=== PATIENT | female | born 1975 | race Two or more races ===

== ENCOUNTER → 2020-03-15 | Day surgery (SDC) | payer BC, OTHER ==
[2020-03-13 12:14] VITALS: BMI 25.0
[~2020-03-15] MED LIST: LACTATED RINGERS 1,000 ML IV SCH; LIDOCAINE 1% (10MG/ML) FOR IV START INTRADERMA ONE; LIDOCAINE 1% (10MG/ML) FOR IV START INTRADERMA PRN; LIDOCAINE 1% INJ 10MG/ML (20 ML MDV) ONE; ONDANSETRON 4 MG/2 ML VIAL IVP ONE; ONDANSETRON 4 MG/2 ML VIAL ONE; PROPOFOL 10 MG/ML 20 ML VIAL IV ONE
[2020-03-15 09:16] VITALS: TEMP 97.5
[2020-03-15 09:24] LABS: Glucose,Whole Blood 80 mg/dL (75-99)
--- NOTE | 2020-03-15 10:19 | P.PCN ---
Date of Procedure: 03/15/20 Procedure(s) Performed: BRIEF HISTORY: Patient is a 44-year-old, pleasant female scheduled for an upper endoscopy as a part of evaluation of epigastric pain with intermittent nausea vomiting and dysphagia. Has history of gastric surgery 4 years ago.. PROCEDURE PERFORMED: Esophagogastroduodenoscop with the biopsy . PREOPERATIVE DIAGNOSIS: Intermittent dysphagia to solids last nausea and vomiting.. IV sedation per anesthesia. PROCEDURE: After informed consent was obtained, the patient was brought into the endoscopy unit. IV sedation was administered by Anesthesia under continuous monitoring. Initially the Olympus GIF-140 video endoscope was inserted into the mouth. Esophagus intubated without any difficulty. It was gradually advanced into the stomach and duodenum and carefully examined. The bulb and the second part of the duodenum appeared normal. The scope at this time was withdrawn to t he stomach, adequately insufflated with air, and upon careful examination, mucosa of the antrum had mild gastritis and biopsies were done from this area. There was evidence of gastric sleeve surgery and the visualized portions of the gastric mucosa and the gastric sleeve appeared entirely normal. The scope was then withdrawn into the esophagus. The GE junction was located at 39 cm from the incisors. there were 2 superficial erosions at the GE junction consistent with LA grade B reflux esophagitis. Rest of the esophagus appeared normal and the patient tolerated the procedure IMPRESSION: 1. Evidence of gastric sleeve surgery. 2. Mild antral gastritis. 3. LA grade a reflux esophagitis RECOMMENDATIONS: The findings of this examination were discussed with the patient as well as her family. She was advised to follow with the biopsy results. In the meantime she will start on Prilosec 20 mg daily and follow antireflux measures. If she still has the symptoms she was advised to follow up in office in 3-4 weeks.
[2020-03-15 10:25] VITALS: RESP 16
[2020-03-15 10:55] VITALS: BP 117/80; PULSE 51
== END ==
LOC: ORWHC2ENDO 08:34 → MERGE 10:00
PROVIDERS: ATTEND Internal Medicine Gastroenterology
DX: K29.50 Unspecified chronic gastritis without bleeding (principal); K21.0 Gastro-esophageal reflux disease with esophagitis; K22.10 Ulcer of esophagus without bleeding; E11.9 Type 2 diabetes mellitus without complications; Z90.710 Acquired absence of both cervix and uterus; Z98.84 Bariatric surgery status
CPT/HCPCS: 88305; 43239; J2405; J2001; J2704

== ENCOUNTER 2023-08-03 11:19 | Inpatient (IN) | payer OTHER ==
--- NOTE | 2023-08-03 11:53 | ED ---
General Adult HPI - General Chief complaint: Abdominal Pain Stated complaint: Bowel Obstruction Time Seen by Provider: 08/03/23 11:20 Source: patient, EMS, RN notes reviewed, old records reviewed Mode of arrival: EMS Limitations: no limitations - History of Present Illness Initial comments: This a 48-year-old female who was seen at [facility] earlier today for abdominal pain. They diagnosed the patient with small bowel obstruction and she did have some vomiting but she no longer feels nauseated. They did not put an NG tube because in the past she's had a gastric sleeve. Patient denies any fever chills. Patient denies history of similar. Patient states she's had a hysterectomy her appendix out as well as a gastric sleeve. Patient denies any chest pain difficult breathing shortest of breath. Patient currently states she is not having any abdominal pain it comes and goes. And she denies any nausea currently. - Related Data Home Medications Medication Instructions Recorded Confirmed Calcium(Dose Unknown) 1 tab PO DAILY 03/13/20 03/15/20 Iron(Dose Unknown) 1 tab PO DAILY 03/13/20 03/15/20 Vitamin B 12(Dose Unknown) 1 tab PO DAILY 03/13/20 03/15/20 Vitamin D3(Dose Unknown) 1 tab PO DAILY 03/13/20 03/15/20 Allergies Allergy/AdvReac Type Severity Reaction Status Date / Time No Known Allergies Allergy Verified 03/15/20 09:16 Review of Systems ROS Statement: Those systems with pertinent positive or pertinent negative responses have been documented in the HPI. ROS Other: All systems not noted in ROS Statement are negative. Past Medical History Past Medical History: GERD/Reflux Additional Past Medical History / Comment(s): having abdominal pain, not able to eat much-"when I eat it comes back up", was diabetic(was on metformin) prior to wt loss, now states "non diabetic"- History of Any Multi-Drug Resistant Organisms: None Reported Past Surgical History: Appendectomy, Bariatric Surgery, Hysterectomy, Tubal Ligation Additional Past Surgical History / Comment(s): gastric sleeve 2014, tubal reversal, surgery for tubal , cyst removed from ovaries, Past Anesthesia/Blood Transfusion Reactions: Family History of Problems w/ Anesthesia Additional Past Anesthesia/Blood Transfusion Reaction / Comment(s): mom has a hard time waking up Past Psychological History: No Psychological Hx Reported Smoking Status: Former smoker Past Alcohol Use History: None Reported Past Drug Use History: None Reported - Past Family History Mother Family Medical History: Cancer General Exam - General Exam Comments Initial Comments: GENERAL: Patient is well-developed and well-nourished. Patient is nontoxic and well- hydrated and is in mild distress. ENT: Neck is soft and supple. No significant lymphadenopathy is noted. Oropharynx is clear. Moist mucous membranes. Neck has full range of motion without eliciting any pain. EYES: The sclera were anicteric and conjunctiva were pink and moist. Extraocular movements were intact and pupils were equal round and reactive to light. Eyelids were unremarkable. PULMONARY: Unlabored respirations. Good breath sounds bilaterally. No audible rales rhonchi or wheezing was noted. CARDIOVASCULAR: There is a regular rate and rhythm without any murmurs gallops or rubs. ABDOMEN: Patient's abdomen is nontender SKIN: Skin is clear with no lesions or rashes and otherwise unremarkable. NEUROLOGIC: Patient is alert and oriented x3. Cranial nerves II through XII are grossly intact. Motor and sensory are also intact. Normal speech, volume and content. Symmetrical smile. MUSCULOSKELETAL: Normal extremities with adequate strength and full range of motion. LYMPHATICS: No significant lymphadenopathy is noted PSYCHIATRIC: Normal psychiatric evaluation. Limitations: no limitations Course Vital Signs 08/03/23 11:22 Temperature 99.2 F Pulse Rate 75 Respiratory 18 Rate Blood Pressure 118/87 O2 Sat by Pulse 96 Oximetry Medical Decision Making - Medical Decision Making Was pt. sent in by a medical professional or institution (, ALEXSANDER, CHART CALCULATOR, urgent care, hospital, or residential...) When possible be specific @ -Patient was sent to us by [facility]. Did you speak to anyone other than the patient for history (EMS, parent, family, police, friend...)? What history was obtained from this source @ -Spoke with the physician at [facility] when they transferred the patient Did you review nursing and triage notes (agree or disagree)? Why? @ -I reviewed and agree with nursing and triage notes Were old charts reviewed (outside hosp., previous admission, EMS record, old EKG, old radiological studies, urgent care reports/EKG's, residential records)? Report findings @ -I reviewed prior lab work and radiological studies from [facility] Differential Diagnosis (chest pain, altered mental status, abdominal pain women, abdominal pain men, vaginal bleeding, weakness, fever, dyspnea, syncope, headache, dizziness, GI bleed, back pain, seizure, CVA, palpatations, mental health, musculoskeletal)? @ -Differential Abdominal Pain Women: Appendicitis, Cholecystitis, diverticulosis, ischemic bowel, pancreatitis, hepatitis, UTI, gastroenteritis, AAA, incarcerated hernia, bowel obstruction, constipation, inflammatory bowel, hepatitis, peptic ulcer disease, splenic infarction, perforated viscus, vulvitis, ovarian torsion, PID, kidney stone, placenta abruption, this is not meant to be an all-inclusive list EKG interpreted by me (3pts min.). @ -As above X-rays interpreted by me (1pt min.). @ -None done CT interpreted by me (1pt min.). @ -None done U/S interpreted by me (1pt. min.). @ -None done What testing was considered but not performed or refused? (CT, X-rays, U/S, labs)? Why? @ -None What meds were considered but not given or refused? Why? @ -None Did you discuss the management of the patient with other professionals (professionals i.e. , PA, CHART CALCULATOR, lab, RT, psych nurse, social media executive, teenage babysitter, teacher, global chief creative officer, case checker)? Give summary @ -I spoke with the [facility] hospitalist and they agreed to admit the patient Was smoking cessation discussed for >3mins.? @ -No Was critical care preformed (if so, how long)? @ -No Were there social determinants of health that impacted care today? How? (Homelessness, low income, unemployed, alcoholism, drug addiction, transportation, low edu. Level, literacy, decrease access to med. care, penitentiary, rehab)? @ -No Was there de-escalation of care discussed even if they declined (Discuss DNR or withdrawal of care, Hospice)? DNR status @ -No What co-morbidities impacted this encounter? (DM, HTN, Smoking, COPD, CAD, Cance r, CVA, ARF, Chemo, Hep., AIDS, mental health diagnosis, sleep apnea, morbid obesity)? @ -None Was patient admitted / discharged? Hospital course, mention meds given and route, prescriptions, significant lab abnormalities, going to OR and other pertinent info. @ -Patient is asymptomatic at this time. Patient's abdomen is nontender. Patient is not nauseated and is not vomiting. I spoke with [facility] I admitted the patient I consult to Dr. Harris Undiagnosed new problem with uncertain prognosis? @ -No Drug Therapy requiring intensive monitoring for toxicity (Heparin, Nitro, Insulin, Cardizem)? @ -No Were any procedures done? @ -No Diagnosis/symptom? @ -Small bowel obstruction Acute, or Chronic, or Acute on Chronic? @ -Acute Uncomplicated (without systemic symptoms) or Complicated (systemic symptoms)? @ -Complicated Side effects of treatment? @ -No Exacerbation, Progression, or Severe Exacerbation? @ -No Poses a threat to life or bodily function? How? (Chest pain, USA, OR, pneumonia, PE, COPD, DKA, ARF, appy, cholecystitis, CVA, Diverticulitis, Homicidal, Suicidal, threat to staff... and all critical care pts) @ -No Disposition Clinical Impression: Small bowel obstruction Disposition: ADMITTED IP TO THIS HOSP Referrals: George Peoples MD [Primary Care Provider] - 1-2 days Time of Disposition: 11:53
[2023-08-03] MEDS ORDERED: SODIUM CHLORIDE 0.9% 1,000 ML IV ONE (12:03)
[2023-08-03 14:59] LABS: ALT 23 U/L (4-34); AST 29 U/L (14-36); African American GFR (CKD) >90 (>60 ml/min/1.73 sqM); Albumin 3.7 g/dL (3.5-5.0); Albumin/Globulin Ratio 1.6; Alkaline Phosphatase 67 U/L (38-126); Anion Gap 7 mmol/L; Blood Urea Nitrogen 10 mg/dL (7-17); Calcium 8.8 mg/dL (8.4-10.2); Carbon Dioxide 27 mmol/L (22-30); Chloride 106 mmol/L (98-107); Globulin 2.3 g/dL; Glucose 94 mg/dL (74-99); Non-African American GFR(CKD) >90 (>60 ml/min/1.73 sqM); Potassium 4.8 mmol/L (3.5-5.1); Sodium 140 mmol/L (137-145); Total Bilirubin 0.5 mg/dL (0.2-1.3)
--- NOTE | 2023-08-03 16:23 | P.HPIM ---
History of Present Illness H&P Date: 08/03/23 Chief Complaint: Abdominal pain 48-year-old female, history of GERD, appendectomy, bariatric surgery, hysterectomy and tubal ligation who was seen at [facility] earlier today for abdominal pain. They diagnosed the patient with small bowel obstruction and she did have some vomiting but she no longer feels nauseated. They did not put an NG tube because in the past she's had a gastric sleeve. -- Patient denies any fever chills. Patient denies history of similar. Patient states she's had a hysterectomy her appendix out as well as a gastric sleeve. Patient denies any chest pain difficult breathing shortest of breath. Patient currently states she is not having any abdominal pain it comes and goes. And she denies any nausea currently. Patient is transferred to our facility for general surgery evaluation Review of Systems REVIEW OF SYSTEMS: CONSTITUTIONAL: No fever, no malaise, no fatigue. HEENT: No recent visual problems or hearing problems. Denied any sore throat. CARDIOVASCULAR: No chest pain, orthopnea, PND, no palpitations, no syncope. PULMONARY: No shortness of breath, no cough, no hemoptysis. GASTROINTESTINAL: No diarrhea, no nausea, no vomiting, no abdominal pain. NEUROLOGICAL: No headaches, no weakness, no numbness. HEMATOLOGICAL: Denies any bleeding or petechiae. GENITOURINARY: Denies any burning micturition, frequency, or urgency. MUSCULOSKELETAL/RHEUMATOLOGICAL: Denies any joint pain, swelling, or any muscle pain. ENDOCRINE: Denies any polyuria or polydipsia. The rest of the 14-point review of systems is negative. Past Medical History Past Medical History: GERD/Reflux Additional Past Medical History / Comment(s): having abdominal pain, not able to eat much-"when I eat it comes back up", was diabetic(was on metformin) prior to wt loss, now states "non diabetic"- History of Any Multi-Drug Resistant Organisms: None Reported Past Surgical History: Appendectomy, Bariatric Surgery, Hysterectomy, Tubal Ligation Additional Past Surgical History / Comment(s): gastric sleeve 2015, tubal reversal, surgery for tubal , cyst removed from ovaries, Past Anesthesia/Blood Transfusion Reactions: Family History of Problems w/ Anesthesia Additional Past Anesthesia/Blood Transfusion Reaction / Comment(s): mom has a hard time waking up Past Psychological History: No Psychological Hx Reported Smoking Status: Former smoker Past Alcohol Use History: None Reported Past Drug Use History: None Reported - Past Family History Mother Family Medical History: Cancer Medications and Allergies Home Medications Medication Instructions Recorded Confirmed Type Atorvastatin [Lipitor] 10 mg PO HS 08/03/23 08/03/23 History Cholecalciferol [Vitamin D3 (25 50 mcg PO DAILY 08/03/23 08/03/23 History Mcg = 1000 Iu)] Ergocalciferol (Vitamin D2) 1,250 mcg PO WE 08/03/23 08/03/23 History [Drisdol (50,000 Iu)] Loratadine [Claritin] 10 mg PO DAILY 08/03/23 08/03/23 History Multivitamins, Thera [Multivitamin 1 tab PO DAILY 08/03/23 08/03/23 History (formulary)] Omeprazole [PriLOSEC] 20 mg PO DAILY 08/03/23 08/03/23 History Psyllium Husk [Fiber Capsule] 0.4 gm PO DAILY 08/03/23 08/03/23 History Venlafaxine HCl [Effexor XR] 75 mg PO DAILY 08/03/23 08/03/23 History Vitamin C/Biotin [Hair, Skin and 1 tab PO DAILY 08/03/23 08/03/23 History Nails Chew] Allergies Allergy/AdvReac Type Severity Reaction Status Date / Time No Known Allergies Allergy Verified 08/03/23 13:30 Physical Exam Vitals: Vital Signs Temp Pulse Resp BP Pulse Ox 08/03/23 11:22 99.2 F 75 18 118/87 96 Intake and Output 08/02/23 08/03/23 08/03/23 22:59 06:59 14:59 Other: Weight 81.647 kg GENERAL: Patient is well-developed and well-nourished. Patient is nontoxic and well- hydrated and is in mild distress. ENT: Neck is soft and supple. No significant lymphadenopathy is noted. Oropharynx is clear. Moist mucous membranes. Neck has full range of motion without eliciting any pain. EYES: The sclera were anicteric and conjunctiva were pink and moist. Extraocular movements were intact and pupils were equal round and reactive to light. Eyelids were unremarkable. PULMONARY: Unlabored respirations. Good breath sounds bilaterally. No audible rales rhonchi or wheezing was noted. CARDIOVASCULAR: There is a regular rate and rhythm without any murmurs gallops or rubs. ABDOMEN: Patient's abdomen is nontender SKIN: Skin is clear with no lesions or rashes and otherwise unremarkable. NEUROLOGIC: Patient is alert and oriented x3. Cranial nerves II through XII are grossly intact. Motor and sensory are also intact. Normal speech, volume and content. Symmetrical smile. MUSCULOSKELETAL: Normal extremities with adequate strength and full range of motion. LYMPHATICS: No significant lymphadenopathy is noted Results CBC & Chem 7: 08/03/23 14:06 Assessment and Plan Assessment: 1. Small bowel obstruction - Patient reports passing flatus and small liquidy bowel movement -- Has been kept nothing by mouth; NG tube is not placed -- IV fluids in form of normal saline; we will monitor renal function likely lites closely -- General surgery consulted 2. Gastroesophageal reflux disease; we'll start Protonix 40 mg IV daily 3. Abdominal pain; resolved DVT prophylaxis; SCDs CODE STATUS ; full code
[2023-08-03] MEDS ORDERED: VENLAFAXINE HCL ER 75 MG CAP PO STA (17:26)
[2023-08-03] MEDS: PANTOPRAZOLE 40 MG/10 ML VIAL IVP SCH (17:31)
--- NOTE | 2023-08-03 19:01 | P.GSCN ---
History of Present Illness Consult date: 08/03/23 History of present illness: Transfer from [place], previous event over 10 years ago. She has history of scar tissue. Pain started 2 days ago involving the left lower quadrant. No blood in stools. She is passing flatus and having loose stools. Plan for UGI. CT from outside facility not available. May have ice chips at this time. Past Medical History Past Medical History: GERD/Reflux Additional Past Medical History / Comment(s): having abdominal pain, not able to eat much-"when I eat it comes back up", was diabetic(was on metformin) prior to wt loss, now states "non diabetic"- History of Any Multi-Drug Resistant Organisms: None Reported Past Surgical History: Appendectomy, Bariatric Surgery, Hysterectomy, Tubal Ligation Additional Past Surgical History / Comment(s): gastric sleeve 2014, tubal reversal, surgery for tubal , cyst removed from ovaries, Past Anesthesia/Blood Transfusion Reactions: Family History of Problems w/ Anesthesia Additional Past Anesthesia/Blood Transfusion Reaction / Comm: mom has a hard time waking up Past Psychological History: No Psychological Hx Reported Smoking Status: Former smoker Past Alcohol Use History: None Reported Past Drug Use History: None Reported - Past Family History Mother Family Medical History: Cancer Medications and Allergies Home Medications Medication Instructions Recorded Confirmed Type Atorvastatin [Lipitor] 10 mg PO HS 08/03/23 08/03/23 History Cholecalciferol [Vitamin D3 (25 50 mcg PO DAILY 08/03/23 08/03/23 History Mcg = 1000 Iu)] Ergocalciferol (Vitamin D2) 1,250 mcg PO WE 08/03/23 08/03/23 History [Drisdol (50,000 Iu)] Loratadine [Claritin] 10 mg PO DAILY 08/03/23 08/03/23 History Multivitamins, Thera [Multivitamin 1 tab PO DAILY 08/03/23 08/03/23 History (formulary)] Omeprazole [PriLOSEC] 20 mg PO DAILY 08/03/23 08/03/23 History Psyllium Husk [Fiber Capsule] 0.4 gm PO DAILY 08/03/23 08/03/23 History Venlafaxine HCl [Effexor XR] 75 mg PO DAILY 08/03/23 08/03/23 History Vitamin C/Biotin [Hair, Skin and 1 tab PO DAILY 08/03/23 08/03/23 History Nails Chew] Allergies Allergy/AdvReac Type Severity Reaction Status Date / Time No Known Allergies Allergy Verified 08/03/23 13:30 Surgical - Exam Vital Signs Temp Pulse Resp BP Pulse Ox 99.2 F 75 18 118/87 96 08/03/23 11:22 08/03/23 11:22 08/03/23 11:22 08/03/23 11:22 08/03/23 11:22 Results - Labs 08/03/23 14:06 Abnormal Lab Results - Last 24 Hours (Table) 08/03/23 Range/Units 14:06 Total Protein 6.0 L (6.3-8.2) g/dL Diabetes panel 08/03/23 Range/Units 14:06 Sodium 140 (137-145) mmol/L Potassium 4.8 (3.5-5.1) mmol/L Chloride 106 (98-107) mmol/L Carbon Dioxide 27 (22-30) mmol/L BUN 10 (7-17) mg/dL Creatinine 0.67 (0.52-1.04) mg/dL Glucose 94 (74-99) mg/dL Calcium 8.8 (8.4-10.2) mg/dL AST 29 (14-36) U/L ALT 23 (4-34) U/L Alkaline Phosphatase 67 (38-126) U/L Total Protein 6.0 L (6.3-8.2) g/dL Albumin 3.7 (3.5-5.0) g/dL Calcium panel 08/03/23 Range/Units 14:06 Calcium 8.8 (8.4-10.2) mg/dL Albumin 3.7 (3.5-5.0) g/dL Pituitary panel 08/03/23 Range/Units 14:06 Sodium 140 (137-145) mmol/L Potassium 4.8 (3.5-5.1) mmol/L Chloride 106 (98-107) mmol/L Carbon Dioxide 27 (22-30) mmol/L BUN 10 (7-17) mg/dL Creatinine 0.67 (0.52-1.04) mg/dL Glucose 94 (74-99) mg/dL Calcium 8.8 (8.4-10.2) mg/dL Adrenal panel 08/03/23 Range/Units 14:06 Sodium 140 (137-145) mmol/L Potassium 4.8 (3.5-5.1) mmol/L Chloride 106 (98-107) mmol/L Carbon Dioxide 27 (22-30) mmol/L BUN 10 (7-17) mg/dL Creatinine 0.67 (0.52-1.04) mg/dL Glucose 94 (74-99) mg/dL Calcium 8.8 (8.4-10.2) mg/dL Total Bilirubin 0.5 (0.2-1.3) mg/dL AST 29 (14-36) U/L ALT 23 (4-34) U/L Alkaline Phosphatase 67 (38-126) U/L Total Protein 6.0 L (6.3-8.2) g/dL Albumin 3.7 (3.5-5.0) g/dL
[2023-08-04] MEDS: PANTOPRAZOLE 40 MG/10 ML VIAL IVP SCH (07:50)
[2023-08-04] MEDS: VENLAFAXINE HCL ER 75 MG CAP PO SCH (07:51)
--- NOTE | 2023-08-04 08:45 | P.PN ---
Subjective Progress Note Date: 08/04/23 Still reports abdominal cramping. Recommend UGI for assessment of transition point of partial bowel obstruction. Objective - Vital Signs Vital signs: Vital Signs Temp 98.2 F 08/04/23 07:32 Pulse 79 08/04/23 07:32 Resp 16 08/04/23 07:32 BP 105/67 08/04/23 07:32 Pulse Ox 94 L 08/04/23 07:32 FiO2 Intake & Output 08/03/23 08/04/23 08/04/23 18:59 06:59 18:59 Weight 81.647 kg 81.647 kg Other: # Voids 2 # Bowel Movements 1 - Labs CBC & Chem 7: 08/03/23 14:06 Labs: Abnormal Lab Results - Last 24 Hours (Table) 08/03/23 Range/Units 14:06 Total Protein 6.0 L (6.3-8.2) g/dL
[2023-08-04 10:49] LABS: Basophils # (A) 0.01 X 10*3/uL (0.00-0.10); Basophils % (A) 0.2 %; Eosinophils # (A) 0.15 X 10*3/uL (0.04-0.35); Eosinophils % (A) 3.5 %; HCT 37.9 % (37.2-46.3); HGB 12.4 g/dL (12.0-15.0); Lymphocytes # (A) 1.24 X 10*3/uL (0.90-5.00); Lymphocytes % (A) 28.6 %; MCH 31.9 pg (27.0-32.0); MCHC 32.7 g/dL (32.0-37.0); MCV 97.4 FL (80.0-97.0); Mean Platelet Volume 9.6 FL (9.5-12.2); Monocytes # (A) 0.32 X 10*3/uL (0.20-1.00); Monocytes % (A) 7.4 %; NRBC Per 100 WBC 0 X 10*3/uL (0.00-0.01); Neutrophils % (A) 59.8 %; Platelet Count 240 X 10*3/uL (140-440); RBC 3.89 X 10*6/uL (4.10-5.20); RDW 13.1 % (11.5-14.5); WBC 4.34 X 10*3/uL (4.50-10.00)
[2023-08-04 10:51] LABS: BUN/Creat Ratio 14.14 Ratio (12.00-20.00); Blood Urea Nitrogen 9.9 mg/dL (9.0-27.0); Calcium 8.3 mg/dL (8.7-10.3); Carbon Dioxide 26.8 mmol/L (21.6-31.8); Chloride 108 mmol/L (96-109); Glucose 94 mg/dL (70-110); Potassium 3.8 mmol/L (3.5-5.5); Sodium 142 mmol/L (135-145)
--- NOTE | 2023-08-04 11:24 | FL ---
EXAMINATION TYPE: FL Gastrografin UGI w small bowel DATE OF EXAM: 08/04/2023 COMPARISON: Outside CT 08/03/2023 HISTORY: 48-year-old female small bowel obstruction. History of sleeve gastrectomy in 2015. TECHNIQUE: A single contrast UGI study is performed with small bowel follow through. A total of 1 m inute 35 seconds of fluoroscopic time was utilized during procedure and 41 images obtained. Total do se area product (DAP) in uGy*m?, mGy*cm? (or similar): 1636.62. A total of 5 ounces of Gastrografin was ingested by the patient. There is limitation in the volume th at the patient could ingest due to the sleeve gastrectomy. FINDINGS: Derrick Boat Runner image of the abdomen shows no gross abnormality. The esophagus shows normal motility and emptying into the stomach. No evidence of hiatal hernia or s tricture noted. There are postsurgical changes of sleeve gastrectomy. The stomach shows normal distensibility, perist alsis, and mucosal folds by single contrast technique. The duodenal bulb and sweep are unremarkable. The small bowel study shows normal transit to the colon at approximately 30 minutes. Overall normal mucosal fold pattern throughout the small bowel. After the proximal small bowel, there is dilutional change to the Gastrografin and residual borderline dilated small bowel loops in the ri ght side of the abdomen measuring up to 3.0 cm versus 3.2 cm on the outside CT However, no discrete transition point is seen and contrast problems he makes it to the right side of the colon at 30 minutes. IMPRESSION: 1. Status post sleeve gastrectomy. 2. Contrast promptly makes it to the colon at around 30 minutes. There is some dilution to the ingest ed Gastrografin in the mid to distal small bowel and some residual borderline distended ileal loops m easuring up to 3.0 cm (versus 3.[address]). No discrete transition point. Findings suggest improving/resolving small bowel obstruction.
--- NOTE | 2023-08-04 22:05 | P.PN ---
Subjective 48-year-old female, history of GERD, appendectomy, bariatric surgery, hysterectomy and tubal ligation who was seen at [facility] earlier today for abdominal pain. They diagnosed the patient with small bowel obstruction and she did have some vomiting but she no longer feels nauseated. They did not put an NG tube because in the past she's had a gastric sleeve. -- Patient denies any fever chills. Patient denies history of similar. Patient states she's had a hysterectomy her appendix out as well as a gastric sleeve. Patient denies any chest pain difficult breathing shortest of breath. Patient currently states she is not having any abdominal pain it comes and goes. And she denies any nausea currently. Patient is transferred to our facility for general surgery evaluation 08/04/2023 SENDY Gilman awake, looks relaxed in bed She still nothing by mouth, no nausea vomiting No abdominal pain today She still reports watery diarrhea about 3 times this morning Small bowel series showing status post sleeve gastrectomy and resolving SBO Remains on normal saline 75 mL per oral and Protonix Objective - Vital Signs Vital signs: Vital Signs Temp 98.7 F 08/04/23 20:00 Pulse 69 08/04/23 20:00 Resp 16 08/04/23 20:00 BP 98/66 08/04/23 20:00 Pulse Ox 95 08/04/23 20:00 FiO2 Intake & Output 08/04/23 08/04/23 08/05/23 06:59 18:59 06:59 Intake Total 600 Balance 600 Weight 81.647 kg Intake: Intake, IV Titration 600 Amount Sodium Chloride 0.9% 1, 600 000 ml @ 75 mls/hr IV . [id number] ONE Rx#:[id number] Other: # Voids 2 3 # Bowel Movements 1 - Exam GENERAL: The patient is alert and oriented x3, not in any acute distress. Well developed, well nourished. HEENT: Pupils are round and equally reacting to light. EOMI. No scleral icterus. No conjunctival pallor. Normocephalic, atraumatic. No pharyngeal erythema. No thyromegaly. CARDIOVASCULAR: S1 and S2 present. No murmurs, rubs, or gallops. PULMONARY: Chest is clear to auscultation, no wheezing , no crackles. ABDOMEN: Soft, nontender, nondistended, normoactive bowel sounds. No palpable organomegaly. MUSCULOSKELETAL: No joint swelling or deformity. EXTREMITIES: No cyanosis, clubbing, or pedal edema. NEUROLOGICAL: Gross neurological examination did not reveal any focal deficits. SKIN: No rashes. no petechiae. - Labs CBC & Chem 7: 08/04/23 06:30 08/04/23 06:30 Labs: Abnormal Lab Results - Last 24 Hours (Table) 08/04/23 08/04/23 Range/Units 06:30 06:30 WBC 4.34 L (4.50-10.00) X 10*3/uL RBC 3.89 L (4.10-5.20) X 10*6/uL MCV 97.4 H (80.0-97.0) FL Calcium 8.3 L (8.7-10.3) mg/dL Assessment and Plan Assessment: 1. Small bowel obstruction - Patient reports passing flatus and small liquidy bowel movement -- Has been kept nothing by mouth; NG tube is not placed -- IV fluids in form of normal saline; we will monitor renal function likely lites closely -- General surgery consulted 2. Gastroesophageal reflux disease; we'll start Protonix 40 mg IV daily 3. Abdominal pain; resolved DVT prophylaxis; SCDs CODE STATUS ; full code
[2023-08-05 08:34] LABS: HCT 38.6 % (37.2-46.3); HGB 12.9 g/dL (12.0-15.0); MCH 31.9 pg (27.0-32.0); MCHC 33.4 g/dL (32.0-37.0); MCV 95.5 FL (80.0-97.0); Mean Platelet Volume 9.5 FL (9.5-12.2); NRBC Per 100 WBC 0 X 10*3/uL (0.00-0.01); Platelet Count 242 X 10*3/uL (140-440); RBC 4.04 X 10*6/uL (4.10-5.20); RDW 12.7 % (11.5-14.5); WBC 3.56 X 10*3/uL (4.50-10.00)
[2023-08-05 08:35] LABS: Basophils # (A) 0.03 X 10*3/uL (0.00-0.10); Basophils % (A) 0.8 %; Eosinophils # (A) 0.14 X 10*3/uL (0.04-0.35); Eosinophils % (A) 3.9 %; Lymphocytes # (A) 1.15 X 10*3/uL (0.90-5.00); Lymphocytes % (A) 32.3 %; Monocytes # (A) 0.34 X 10*3/uL (0.20-1.00); Monocytes % (A) 9.6 %; Neutrophils # (A) 1.89 X 10*3/uL (1.80-7.70); Neutrophils % (A) 53.1 %
[2023-08-05] MEDS: PANTOPRAZOLE 40 MG/10 ML VIAL IVP SCH (08:46)
[2023-08-05] MEDS: VENLAFAXINE HCL ER 75 MG CAP PO SCH (08:46)
[2023-08-05] MEDS: HEPARIN SODIUM,PORCINE 5,000 UNIT/ML 1 ML VIAL SQ SCH ×2 (08:46→20:19)
--- NOTE | 2023-08-05 12:30 | P.PN ---
Subjective 48-year-old female, history of GERD, appendectomy, bariatric surgery, hysterectomy and tubal ligation who was seen at [facility] earlier today for abdominal pain. They diagnosed the patient with small bowel obstruction and she did have some vomiting but she no longer feels nauseated. They did not put an NG tube because in the past she's had a gastric sleeve. -- Patient denies any fever chills. Patient denies history of similar. Patient states she's had a hysterectomy her appendix out as well as a gastric sleeve. Patient denies any chest pain difficult breathing shortest of breath. Patient currently states she is not having any abdominal pain it comes and goes. And she denies any nausea currently. Patient is transferred to our facility for general surgery evaluation 08/04/2023 pt awake, looks relaxed in bed She still nothing by mouth, no nausea vomiting No abdominal pain today She still reports watery diarrhea about 3 times this morning Small bowel series showing status post sleeve gastrectomy and resolving SBO Remains on normal saline 75 mL per oral and Protonix 08/05/2023 Patient was seen in walking in her home. No vomiting. She remains nothing by mouth. No abdominal pain and very mild tenderness which is improving. Patient with no bowel movement since yesterday morning when she had 3 watery bowel movements yesterday. Currently she is passing gas but no bowel movement. Extremities normal saline 75 mL/h Advance diet for surgery team recommendations, discussed with staff Objective - Vital Signs Vital signs: Vital Signs Temp 98.4 F 08/05/23 07:50 Pulse 64 08/05/23 07:50 Resp 16 08/05/23 07:50 BP 96/60 08/05/23 07:50 Pulse Ox 93 L 08/05/23 07:50 FiO2 Intake & Output 08/04/23 08/05/23 08/05/23 18:59 06:59 18:59 Intake Total 600 Balance 600 Intake: Intake, IV Titration 600 Amount Sodium Chloride 0.9% 1, 600 000 ml @ 75 mls/hr IV . [id number] ONE Rx#:[id number] Other: # Voids 3 4 - Exam GENERAL: The patient is alert and oriented x3, not in any acute distress. Well developed, well nourished. HEENT: Pupils are round and equally reacting to light. EOMI. No scleral icterus. No conjunctival pallor. Normocephalic, atraumatic. No pharyngeal erythema. No thyromegaly. CARDIOVASCULAR: S1 and S2 present. No murmurs, rubs, or gallops. PULMONARY: Chest is clear to auscultation, no wheezing , no crackles. ABDOMEN: Soft, nontender, nondistended, normoactive bowel sounds. No palpable organomegaly. MUSCULOSKELETAL: No joint swelling or deformity. EXTREMITIES: No cyanosis, clubbing, or pedal edema. NEUROLOGICAL: Gross neurological examination did not reveal any focal deficits. SKIN: No rashes. no petechiae. - Labs CBC & Chem 7: 08/05/23 05:33 08/04/23 06:30 Labs: Abnormal Lab Results - Last 24 Hours (Table) 08/05/23 Range/Units 05:33 WBC 3.56 L (4.50-10.00) X 10*3/uL RBC 4.04 L (4.10-5.20) X 10*6/uL Assessment and Plan Assessment: 1. Small bowel obstruction - Patient reports passing flatus and small liquidy bowel movement -- Has been kept nothing by mouth; NG tube is not placed -- IV fluids in form of normal saline; we will monitor renal function likely lites closely -- General surgery consulted 2. Gastroesophageal reflux disease; we'll start Protonix 40 mg IV daily 3. Abdominal pain; resolved DVT prophylaxis; SCDs CODE STATUS ; full code
[2023-08-05] MEDS ORDERED: SODIUM CHLORIDE 0.9% 2,000 ML IV ONE (13:02)
--- NOTE | 2023-08-05 22:34 | P.PN ---
Subjective Progress Note Date: 08/05/23 Principal diagnosis: She tolerated cleas. UGI negative for bowel obstruction. Recommend advance to low fiber diet and discharge. Objective - Vital Signs Vital signs: Vital Signs Temp 98.5 F 08/05/23 20:00 Pulse 58 L 08/05/23 20:00 Resp 17 08/05/23 14:00 BP 120/86 08/05/23 20:00 Pulse Ox 97 08/05/23 20:00 FiO2 Intake & Output 08/05/23 08/05/23 08/06/23 06:59 18:59 06:59 Other: # Voids 4 2 - Labs CBC & Chem 7: 08/05/23 05:33 08/04/23 06:30 Labs: Abnormal Lab Results - Last 24 Hours (Table) 08/05/23 Range/Units 05:33 WBC 3.56 L (4.50-10.00) X 10*3/uL RBC 4.04 L (4.10-5.20) X 10*6/uL
[2023-08-06] MEDS: SODIUM CHLORIDE 0.9% 1,000 ML IV SCH ×2 (00:42→08:19)
[2023-08-06 01:03] VITALS: PULSE 68
[2023-08-06] MEDS: HEPARIN SODIUM,PORCINE 5,000 UNIT/ML 1 ML VIAL SQ SCH (08:19)
[2023-08-06] MEDS: PANTOPRAZOLE 40 MG/10 ML VIAL IVP SCH (08:19)
[2023-08-06] MEDS: VENLAFAXINE HCL ER 75 MG CAP PO SCH (08:19)
[2023-08-06 08:33] VITALS: BP 92/60; RESP 16; TEMP 98.4
--- NOTE | 2023-08-06 22:46 | P.DS ---
Providers Date of admission: 08/03/23 12:05 Attending physician: Gaudencio Suazo Consults: 08/03/23 12:03 Consult Physician Urgent Consulting Provider: Lacy Castellanos Consult Reason/Comments: Small bowel obstruction Do you want consulting provider notified?: Yes Primary care physician: George Peoples Hospital Course: Diagnoses: 1. Small bowel obstruction, resolved 2. Gastroesophageal reflux disease 3. Abdominal pain; resolved 4. Depression, stable upon discharge Hospital course: 48-year-old female, history of GERD, appendectomy, bariatric surgery, hysterectomy and tubal ligation who was seen at [facility] earlier today for abdominal pain. Patient is found to have small bowel obstruction and she was treated with IV fluids, pain medication and bowel rest. Patient is been followed closer by surgery team. Patient showed interval improvement in her abdominal pain resolved, she tolerates diet well and she is having regular bowel movement. Her new complaints and patient is eager to be discharged Patient was cleared for discharge by surgery team. Problems and management plan were discussed with the patient and he verbalized understanding and acceptance Patient was found stable and can be discharged home in guarded prognosis however he needs follow-up as an outpatient. Patient was instructed to follow up with PCP within one week and patient agrees Patient was instructed to follow up with surgeon Dr. Whaley in 2 weeks after discharge and she agrees to call and make her own appointment Physical exam Gen: patient is a AAOx3, no distress CVS: S1-S2, RRR, no murmur Lungs: B/L CTA, no wheezing Abdomen: soft, no distention, no tenderness, positive bowel sounds Extremity: no leg edema or induration Time spent more than 35 minutes Plan - Discharge Summary Discharge Rx Participant: Yes New Discharge Prescriptions: Continue Omeprazole [PriLOSEC] 20 mg PO DAILY Loratadine [Claritin] 10 mg PO DAILY Ergocalciferol (Vitamin D2) [Drisdol (50,000 Iu)] 1,250 mcg PO WE Venlafaxine HCl [Effexor XR] 75 mg PO DAILY Atorvastatin [Lipitor] 10 mg PO HS Vitamin C/Biotin [Hair, Skin and Nails Chew] 1 tab PO DAILY Psyllium Husk [Fiber Capsule] 0.4 gm PO DAILY Cholecalciferol [Vitamin D3 (25 Mcg = 1000 Iu)] 50 mcg PO DAILY Multivitamins, Thera [Multivitamin (formulary)] 1 tab PO DAILY Discharge Medication List Atorvastatin [Lipitor] 10 mg PO HS 08/03/23 [History] Cholecalciferol [Vitamin D3 (25 Mcg = 1000 Iu)] 50 mcg PO DAILY 08/03/23 [History] Ergocalciferol (Vitamin D2) [Drisdol (50,000 Iu)] 1,250 mcg PO WE 08/03/23 [History] Loratadine [Claritin] 10 mg PO DAILY 08/03/23 [History] Multivitamins, Thera [Multivitamin (formulary)] 1 tab PO DAILY 08/03/23 [History] Omeprazole [PriLOSEC] 20 mg PO DAILY 08/03/23 [History] Psyllium Husk [Fiber Capsule] 0.4 gm PO DAILY 08/03/23 [History] Venlafaxine HCl [Effexor XR] 75 mg PO DAILY 08/03/23 [History] Vitamin C/Biotin [Hair, Skin and Nails Chew] 1 tab PO DAILY 08/03/23 [History] Follow up Appointment(s)/Referral(s): Lacy Castellanos MD [STAFF PHYSICIAN] - 2 Weeks George Peoples MD [Primary Care Provider] - 08/11/23 2:45 pm Patient Instructions/Handouts: Low Fiber Diet (DC), Bowel Obstruction (DC) Activity/Diet/Wound Care/Special Instructions: low fiber diet activity is restricted till you see your doctor Discharge Disposition: HOME SELF-CARE
== END 2023-08-06 13:30 | disposition home or self-care (01) | DRG 247 ==
LOC: EC 11:19 → 4SSUR 12:05
PROVIDERS: ADMIT Hospitalist; ATTEND Hospitalist
DX: K56.600 Partial intestinal obstruction, unspecified as to cause (principal); F32.A Depression, unspecified; K21.9 Gastro-esophageal reflux disease without esophagitis; Z98.84 Bariatric surgery status; Z87.891 Personal history of nicotine dependence; Z79.899 Other long term (current) drug therapy; Z28.310 Unvaccinated for COVID-19
CPT/HCPCS: 74240; 74248; 80048; 80053; 85025; 96368; 96372; 96374; 99285